=== PATIENT | male | born 1955 | race Hispanic/Latino ===

== ENCOUNTER 2016-07-17 11:45 | Emergency (ER) | payer SELFPAY ==
[~2016-07-17] VITALS: Ht 167.6 cm; Wt 80.5 kg
[~2016-07-17 11:45] MED LIST: NOHOMEMEDS
[2016-07-17 13:03] LABS: EOSINOPHIL COUNT 0.2 K/uL (0-0.3); HEMATOCRIT 37.7 % (38.0-50.0); IMMATURE GRANULOCYTE (%) 0.1 % (0.0-0.7); IMMATURE GRANULOCYTE COUNT 0.1 K/uL; LYMPHOCYTE COUNT 1.8 K/uL (1.0-2.8); MCH 31.4 PG (29.0-34.0); MCHC 34.2 G/DL (30.0-36.0); MCV 91.7 FL (86-99); MONOCYTE (%) 6.6 % (3-12); MONOCYTE COUNT 0.5 K/uL (0-0.8); NEUTROPHIL (%) 67.7 % (45-76); NEUTROPHIL COUNT 5.1 K/uL (1.8-6.4); PLATELET COUNT 268 K/uL (156-360); RBC DIS.WIDTH-CV 11.5 % (11.8-14.6); RBC DIS.WIDTH-SD 37.7 % (39-53); RED BLOOD COUNT 4.11 M/uL (4.00-5.50); WHITE BLOOD COUNT 7.6 K/uL (4.1-10.2)
[2016-07-17 13:14] LABS: CHLORIDE 107 mEq/L (99-109); POTASSIUM 4.2 mEq/L (3.7-5.4); SODIUM 142 mEq/L (136-147)
[2016-07-17 13:15] LABS: GLUCOSE 94 mg/dL (70-99)
[2016-07-17 13:17] LABS: ANION GAP 7 MEQ/L (2-14)
[2016-07-17 13:19] LABS: GFR ESTIMATE (CALCULATED) > 59 mL/min/
[2016-07-17 13:20] LABS: UREA NITROGEN (BUN) 15 mg/dL (9-23)
[2016-07-17] MEDS ORDERED: MOTRIN800 MG PO (13:50)
[2016-07-17] MEDS ORDERED: KEFLEX500 MG PO (13:50)
[2016-07-17 14:15] VITALS: BP 145/80
== END 2016-07-17 14:42 | disposition home or self-care (01) ==
LOC: EME 11:45
PROVIDERS: Emergency Medicine
DX: L03.116 Cellulitis of left lower limb (principal)
CPT/HCPCS: 73630; 80048; 85025; 99281; 99284

== ENCOUNTER 2016-07-20 14:51 | Inpatient (IN) | payer OTHER ==
[~2016-07-20] VITALS: Ht 170.2 cm; Wt 79.0 kg
[~2016-07-20 14:51] MED LIST changes: +KEFLEX500 MG PO; +MOTRIN800 MG PO
[2016-07-20 16:45] LABS: HEMATOCRIT 41.4 % (38.0-50.0); MCH 31.1 PG (29.0-34.0); MCHC 34.1 G/DL (30.0-36.0); MCV 91.4 FL (86-99); MEAN PLAT.VOLUME 9.3 uM^3 (9.0-12.4); PLATELET COUNT 289 K/uL (156-360); RBC DIS.WIDTH-CV 11.7 % (11.8-14.6); RBC DIS.WIDTH-SD 38.9 % (39-53); RED BLOOD COUNT 4.53 M/uL (4.00-5.50); WHITE BLOOD COUNT 9.3 K/uL (4.1-10.2)
[2016-07-20 16:52] LABS: CHLORIDE 111 mEq/L (99-109); POTASSIUM 4.2 mEq/L (3.7-5.4); SODIUM 145 mEq/L (136-147)
[2016-07-20 16:54] LABS: GLUCOSE 88 mg/dL (70-99)
[2016-07-20 16:56] LABS: ANION GAP 14 MEQ/L (2-14)
[2016-07-20 16:58] LABS: GFR ESTIMATE (CALCULATED) > 59 mL/min/
[2016-07-20] MEDS ORDERED: KEFLEX250 MG PO (16:58)
[2016-07-20 16:59] LABS: UREA NITROGEN (BUN) 20 mg/dL (9-23)
[2016-07-20 19:50] VITALS: BP 142/68
[2016-07-20 23:29] VITALS: BP 1215/56
[2016-07-21 07:21] LABS: EOSINOPHIL (%) 1.5 % (0-5); EOSINOPHIL COUNT 0.1 K/uL (0-0.3); HEMATOCRIT 36.5 % (38.0-50.0); IMMATURE GRANULOCYTE (%) 0.2 % (0.0-0.7); LYMPHOCYTE COUNT 2.4 K/uL (1.0-2.8); MCH 31.4 PG (29.0-34.0); MCHC 33.4 G/DL (30.0-36.0); MCV 93.8 FL (86-99); MEAN PLAT.VOLUME 9.9 uM^3 (9.0-12.4); MONOCYTE (%) 6.3 % (3-12); MONOCYTE COUNT 0.4 K/uL (0-0.8); NEUTROPHIL (%) 56.1 % (45-76); NEUTROPHIL COUNT 3.7 K/uL (1.8-6.4); PLATELET COUNT 283 K/uL (156-360); RBC DIS.WIDTH-SD 40.8 % (39-53); RED BLOOD COUNT 3.89 M/uL (4.00-5.50); WHITE BLOOD COUNT 6.6 K/uL (4.1-10.2)
[2016-07-21 07:44] VITALS: BP 104/63
[2016-07-21 07:44] LABS: ANION GAP 9 MEQ/L (2-14); CHLORIDE 108 MEQ/L (99-109); GFR ESTIMATE (CALCULATED) > 59 mL/min/; GLUCOSE 82 mg/dL (70-99); POTASSIUM 3.9 MEQ/L (3.7-5.4); SAMPLE HEMOLYSIS CHECK 0; SAMPLE ICTERIC CHECK 0; SAMPLE LIPEMIA CHECK 0; SODIUM 143 MEQ/L (136-147); UREA NITROGEN (BUN) 19 mg/dL (9-23)
[2016-07-21 16:25] VITALS: BP 141/66
[2016-07-21 23:24] VITALS: BP 127/75
[2016-07-22 09:00] VITALS: BP 125/55
[2016-07-22 10:41] LABS: GFR ESTIMATE (CALCULATED) > 59 mL/min/
[2016-07-22 10:42] LABS: VANCOMYCIN, TROUGH 11.6 MCG/ML (10-20)
[2016-07-22 16:00] VITALS: BP 139/75
[2016-07-22 22:04] VITALS: BP 127/63
[2016-07-23 07:39] VITALS: BP 121/70
[2016-07-23 15:04] VITALS: BP 118/64
[2016-07-24 00:35] VITALS: BP 126/64
[2016-07-24 08:12] VITALS: BP 104/63
[2016-07-24] MEDS ORDERED: TYLENOL REGULA325 MG PO (10:27)
[2016-07-24] MEDS ORDERED: LEVAQUIN750 MG PO (10:27)
[2016-07-24] MEDS ORDERED: MOTRIN800 MG PO (10:34)
== END 2016-07-24 16:00 | disposition home or self-care (01) | DRG 603 ==
LOC: EME 14:51 → 5EAST 18:58 → EDOF 18:58 → 5EAST 19:48
PROVIDERS: Emergency Medicine; Hospitalist
DX: L03.031 Cellulitis of right toe (principal); L03.115 Cellulitis of right lower limb; L02.611 Cutaneous abscess of right foot; B96.5 Pseudomonas (aeruginosa) (mallei) (pseudomallei) as the cause of diseases classified elsewhere; K14.9 Disease of tongue, unspecified
CPT/HCPCS: 70450; 80048; 80202; 82565; 85025; 85027; 85651; 86140; 87040; 87070; 87075; 87077; 87147; 87186; 87205; 99281; 99285; J0690; J0692; J1170; J1644; J3370; J7030; J7050

== ENCOUNTER 2017-01-27 22:13 | Emergency (ER) | payer SELFPAY ==
[~2017-01-27] VITALS: Ht 177.8 cm; Wt 76.7 kg
[~2017-01-27 22:13] MED LIST changes: +KEFLEX250 MG PO; +LEVAQUIN750 MG PO; +TYLENOL REGULA325 MG PO
[2017-01-28 05:55] VITALS: BP 110/60
== END 2017-01-28 05:59 | disposition home or self-care (01) ==
LOC: EME → EDBD 22:13 → EME 22:13
DX: F10.129 Alcohol abuse with intoxication, unspecified (principal)
CPT/HCPCS: 99281; 99284